=== PATIENT | female | born 1995 | race Caucasian/White ===

== ENCOUNTER 2022-09-22 19:40 | Emergency (ER) | payer SELFPAY ==
[~2022-09-22] VITALS: Ht 165.1 cm; Wt 45.9 kg
[2022-09-22 20:29] LABS: BASOPHILS % 1.1 % (0.0-2.0); EOSINOPHILS % 3.5 % (0.0-5.0); HEMATOCRIT. 37.7 % (36.0-48.0); LYMPHOCYTES % 28.9 % (20.0-50.0); MEAN CORPUSCULAR HEMOGLOBIN 29.7 pg (28.0-32.0); MEAN CORPUSCULAR VOLUME 86.2 fL (81.0-99.0); MEAN PLATELET VOLUME 9.6 fl (7.4-10.4); MONOCYTES % 6.8 % (2.0-8.0); NEUTROPHILS % 59.7 % (40.0-76.0); PLATELET 327 x1000/uL (130-400); RED BLOOD CELL COUNT 4.37 mill/uL (4.2-5.4); RED CELL DISTRIBUTION WIDTH 13.4 % (11.6-14.6)
[2022-09-22 20:33] LABS: CHLORIDE 105 mEq/L (98-107)
[2022-09-22 20:47] LABS: HCG SCREEN POSITIVE
[2022-09-22] MEDS ORDERED: MORPHINE SULFATE 4 MG/ML CPJ (NOT FOR IM USE) IV ONE (22:00)
[2022-09-22] MEDS ORDERED: ONDANSETRON HCL 4MG/2ML INJ IV ONE (22:00)
[2022-09-22 23:14] LABS: CLARITY URINE CLEAR (CLEAR); COLOR URINE RED (YELLOW); KETONES URINE NEGATIVE (NEGATIVE); LEUKOCYTE ESTERASE URINE TRACE (NEGATIVE); NITRITE URINE NEGATIVE (NEGATIVE); OCCULT BLOOD URINE 3+ (NEGATIVE); PH URINE 5.5 (4.5-8.0); PROTEIN URINE 2+ (NEGATIVE); UROBILINOGEN URINE 0.2 E.U./dL (0.2-1.0)
[2022-09-23] MEDS ORDERED: ONDANSETRON HCL 4MG/2ML INJ IV ONE (01:30)
[2022-09-23] MEDS ORDERED: ONDANSETRON HCL 4MG/2ML INJ IV NR (01:30)
[2022-09-23] MEDS ORDERED: MORPHINE SULFATE 4 MG/ML CPJ (NOT FOR IM USE) IV NR (01:30)
[2022-09-23] MEDS ORDERED: METHOTREXATE SODIUM/PF 50 MG/2 ML VIAL IM NR (04:15)
[2022-09-23 04:50] VITALS: BP 117/76
== END 2022-09-23 07:34 | disposition home or self-care (01) ==
LOC: ER 19:40
DX: R10.32 Left lower quadrant pain (principal)
CPT/HCPCS: 36415; 76801; 76817; 80053; 81003; 83690; 84702; 84703; 85025; 86850; 86900; 86901; 93005; 99285; J2270; J2405; J9260

== ENCOUNTER 2022-09-24 11:01 | Inpatient (IN) | payer SELFPAY ==
[~2022-09-24] VITALS: Ht 162.6 cm; Wt 91.2 kg
[2022-09-24 13:47] LABS: BASOPHILS % 1.1 % (0.0-2.0); EOSINOPHILS % 2.7 % (0.0-5.0); HEMATOCRIT. 36.6 % (36.0-48.0); HEMOGLOBIN. 12.6 g/dL (12.0-16.0); LYMPHOCYTES % 22.4 % (20.0-50.0); MEAN CORPUSCULAR HEMOGLOBIN 29.9 pg (28.0-32.0); MEAN CORPUSCULAR VOLUME 87.1 fL (81.0-99.0); MEAN PLATELET VOLUME 9.8 fl (7.4-10.4); NEUTROPHILS % 66.8 % (40.0-76.0); PLATELET 285 x1000/uL (130-400); RED CELL DISTRIBUTION WIDTH 13.2 % (11.6-14.6)
[2022-09-24 14:01] LABS: CHLORIDE 105 mEq/L (98-107)
[2022-09-24] MEDS ORDERED: ONDANSETRON 4MG ODT PO ONE (15:45)
[2022-09-24] MEDS ORDERED: HYDROCODONE/ACETAMINOPHEN 5/325MG TABLET PO ONE (15:45)
[2022-09-24] MEDS ORDERED: BUPIVACAINE HCL/PF 0.5% (5MG/ML) 10ML ONE (17:24)
[2022-09-24] MEDS ORDERED: PROPOFOL 200MG/20ML VIAL IV ONE (17:26)
[2022-09-24] MEDS ORDERED: ROCURONIUM BROMIDE 10MG/ML VIAL 5ML IV ONE (17:26)
[2022-09-24] MEDS ORDERED: MIDAZOLAM HCL 2 MG/2 ML VIAL ONE (17:40)
[2022-09-24] MEDS ORDERED: FENTANYL CITRATE/PF 50MCG/ML 2ML VIAL ONE ×2 (17:46→18:11)
[2022-09-24] MEDS ORDERED: DEXAMETHASONE 4MG/ML 1ML VIAL ONE (17:52)
[2022-09-24] MEDS ORDERED: CEFAZOLIN SODIUM 1000MG/VIAL ONE (17:52)
[2022-09-24] MEDS ORDERED: ONDANSETRON HCL 4MG/2ML INJ ONE (17:52)
[2022-09-24] MEDS ORDERED: KETOROLAC 30MG/ML VIAL ONE (17:52)
[2022-09-24] MEDS ORDERED: GLYCOPYRROLATE 0.2 MG/ML 2ML VIAL ONE (17:53)
[2022-09-24 18:10] LABS: CLARITY URINE TURBID (CLEAR); COLOR URINE RED (YELLOW); KETONES URINE NEGATIVE (NEGATIVE); LEUKOCYTE ESTERASE URINE 2+ (NEGATIVE); NITRITE URINE NEGATIVE (NEGATIVE); OCCULT BLOOD URINE 3+ (NEGATIVE); PH URINE 5.5 (4.5-8.0); PROTEIN URINE 2+ (NEGATIVE); SPECIFIC GRAVITY URINE 1.021 (1.005-1.030)
[2022-09-24] MEDS ORDERED: FENTANYL CITRATE/PF 50MCG/ML 2ML VIAL IV PRN (18:30)
[2022-09-24] MEDS ORDERED: ONDANSETRON HCL 4MG/2ML INJ IV PRN (18:30)
[2022-09-24] MEDS ORDERED: HYDROMORPHONE HCL/PF 2MG/ML CPJ IV PRN (18:30)
[2022-09-24] MEDS ORDERED: MEPERIDINE HCL/PF 25MG/ML CPJ IV PRN (18:30)
[2022-09-24] MEDS ORDERED: IBUPROFEN 400MG TABLET PO PRN (18:52)
[2022-09-24] MEDS: MORPHINE SULFATE 4 MG/ML CPJ (NOT FOR IM USE) IV PRN (21:36)
[2022-09-24] MEDS ORDERED: BISACODYL 5MG TABLET PO NR (22:30)
[2022-09-24 23:00] VITALS: BP 106/63
[2022-09-25 04:00] VITALS: BP 101/54
[2022-09-25 06:21] LABS: HEMATOCRIT. 35.2 % (36.0-48.0); HEMOGLOBIN. 12.1 g/dL (12.0-16.0); MEAN CORPUSCULAR HEMOGLOBIN 29.8 pg (28.0-32.0); MEAN CORPUSCULAR VOLUME 87.1 fL (81.0-99.0); MEAN PLATELET VOLUME 10.1 fl (7.4-10.4); PLATELET 289 x1000/uL (130-400); RED BLOOD CELL COUNT 4.05 mill/uL (4.2-5.4)
[2022-09-25 06:31] LABS: CHLORIDE 107 mEq/L (98-107)
[2022-09-25 08:00] VITALS: BP 109/57
[2022-09-25] MEDS: MORPHINE SULFATE 4 MG/ML CPJ (NOT FOR IM USE) IV PRN ×2 (08:15→23:15)
[2022-09-25] MEDS ORDERED: BISACODYL 5MG TABLET PO PRN (09:00)
[2022-09-25 11:43] LABS: PLATELET ESTIMATE NORMAL
[2022-09-25 12:00] VITALS: BP 122/57
[2022-09-25 16:00] VITALS: BP 104/58
[2022-09-25] MEDS ORDERED: IBUPROFEN 800MG TABLET PO PRN (19:08)
[2022-09-25] MEDS ORDERED: NALOXONE HCL 0.4MG/ML VIAL IV PRN (19:15)
[2022-09-25 20:00] VITALS: BP 105/53
[2022-09-26] VITALS: BP 111/61
[2022-09-26 04:00] VITALS: BP 109/56
[2022-09-26] MEDS ORDERED: IBUP-2030 MT (06:42)
[2022-09-26 08:00] VITALS: BP 112/59
[2022-09-26 10:19] VITALS: BP 112/59
[2022-09-26] MEDS: MORPHINE SULFATE 4 MG/ML CPJ (NOT FOR IM USE) IV PRN (10:55)
[2022-09-26 12:00] VITALS: BP 105/53
== END 2022-09-26 14:03 | disposition home or self-care (01) | DRG 547 ==
LOC: ER 11:01 → 6EST 16:20 → EDBEDREQ 16:23
PROVIDERS: ADMIT Obstetrics & Gynecology; ATTEND Obstetrics & Gynecology
PROC: 0UB60ZZ Excision of Left Fallopian Tube, Open Approach (ICD-10-PCS; principal; 2022-09-24)
PROC: 10T20ZZ Resection of Products of Conception, Ectopic, Open Approach (ICD-10-PCS; 2022-09-24)
DX: O00.102 Left tubal pregnancy without intrauterine pregnancy (principal); K66.1 Hemoperitoneum; D62 Acute posthemorrhagic anemia; Z3A.12 12 weeks gestation of pregnancy
CPT/HCPCS: 36415; 76801; 80048; 80053; 81003; 84702; 85025; 86850; 86900; 88302; 99285; J0690; J1100; J1885; J2250; J2270; J2405; J2704; J3010; J3490